=== PATIENT | male | born 1980 | race Caucasian/White ===

== ENCOUNTER 2023-05-21 20:31 | Emergency (ER) | payer SELFPAY ==
[2023-05-21 20:43] VITALS: BP 130/82
[2023-05-21 20:58] LABS: Hematocrit 34.1 % (39.0-52.0); Hemoglobin 11.4 g/dL (13.0-18.0); Mean Corp Hgb Conc. 33.4 g/dL (33.0-37.0); Mean Corpuscular Hgb 29.2 pg (27.0-31.0); Mean Corpuscular Volume 87.4 fL (80.0-94.0); Mean Platelet Volume 9.6 fL (7.4-10.4); Platelet Count 277 10^3/uL (130-400); Red Cell Dist. Width 14.3 % (11.5-14.5)
[2023-05-21 21:18] LABS: ALT (SGPT) 18 U/L (0-50); AST (SGOT) 25 U/L (17-59); Albumin 4.8 g/dl (3.5-5.0); Alkaline Phosphatase 65 U/L (38-126); Blood Urea Nitrogen 17 mg/dl (9-20); Calcium 9.6 mg/dl (8.4-10.2); Carbon Dioxide 28 mmol/L (22-30); Chloride 104 mmol/L (98-107); Glucose 100 mg/dl (70-99); Lithium 0.6 mmol/L (0.6-1.2); Potassium 4.3 mmol/L (3.5-5.1); Sodium 135 mmol/L (135-145); Total Bilirubin 0.4 mg/dl (0.2-1.3); Total Protein 7.4 g/dl (6.3-8.2); eGFR > 60.00
--- NOTE | 2023-05-21 23:51 | ED.GENMED ---
History of Present Illness
General
Chief Complaint: Bowel Problem
Source: patient
Exam Limitations: none
Time Seen by Provider: 05/21/23 23:06
Travel History
Have you had any contact with someone who has COVID-19?: No
Do you have any symptoms of coronavirus? Fever > 100 degrees, chills, cough, shortness of breath, sore throat, loss of taste or smell, muscle aches, or headache?: No
History of Present Illness
History of Present Illness:
This is a 43 year old male that comes in with c/o hemorrhoids. State that for about the past month he has had discomfort in the rectal area like a hemorrhoid. States that he also had labs about 1.5 weeks ago and he was told that his Potassium was
high. States that he came in to night because of the rectal discomfort. Denies any fever, chills, chest pain, SOB, abd pain, nausea, vomiting, diarrhea, headache, dizziness, urinary burning.
Past History
Past History
ED Past Medical History: Asthma, Psychiatric (bipolar ) and Other (Pyloris stenosis)
ED Past Surgical History: Tonsilectomy
Social History
Tobacco: Non-smoker
Alcohol: None
Drug: None
Personal:
Living: with family
Review of Systems
Review of Systems
All Other Systems: ROS reviewed and negative except as documented in HPI and ROS
Constitutional: Reports no symptoms; Denies fever or chills
EENT: Reports no symptoms
Respiratory: Denies cough or trouble breathing
Cardiac: Reports no symptoms; Denies chest pain
ABD/GI: Reports other (Rectal exam negative for any obvious hemorrhoid. Possible internal hemorrhoid palpable. ); Denies abdominal pain, nausea, vomiting or diarrhea
: Reports no symptoms; Denies dysuria, frequency or urgency
Musculoskeletal: Reports no symptoms
Skin: Reports no symptoms
Neurological: Reports no symptoms; Denies dizzy or headache
Psychiatric: Reports no symptoms
Phy Exam
General Physical Exam
General Presentation: well appearing and no apparent distress
General age: appears stated age
General Skin: warm and dry
General Habitus: normal
General Mental: alert
General Hydration: appears well hydrated
ENT Exam
ENT Exam: TM's normal, pharynx normal and neck supple
Eye Exam
Eye Exam: EOMI
Cardiovascular Exam
Cardiovascular Exam: regular rate/rhythm, no edema, no murmur and normal peripheral pulses
Pulmonary Exam
Pulmonary Exam: lungs clear, no respiratory distress, no rales, chest non tender, no crackles, no rhonchi, no wheezing and no cough
Gastrointestinal Exam
Gastrointestinal Exam: normal bowel sounds, non tender, soft, no organomegaly, no pulsatile mass, non distended and other (Negative for any external hemorrhoid. Possible internal hemorrhoid palpable. Negative for any abscess noted)
Musculoskeletal Exam
Musculoskeletal Exam: full ROM and no edema
Skin Exam
Skin Exam: normal color, warm/dry, no rash and no petechia
Psychiatric Exam
Psychiatric Exam: normal mood/affect
Course
Orders/Labs/Results
Orders:
Orders
05/21/23 20:52
CMP [Comprehensive Metabolic Panel] Urgent
Complete Blood Count/No Diff Urgent
Deans Urgent
05/21/23 23:49
Anusol Hc Suppository [Anusol Hc] 25 mg RECTAL NOW STA
Abnormal Lab Results
05/21/23
20:52
RBC 3.90 L 10^6/uL
(4.70-6.10)
Hgb 11.4 L g/dL
(13.0-18.0)
Hct 34.1 L %
(39.0-52.0)
Glucose 100 H mg/dl
(70-99)
05/21/23 20:52
05/21/23 20:52
HH slightly low. Glucose nonfasting. Deans level low normal at 0.6
Vital Signs
Initial and Last Documented VS:
Initial Vital Signs
Pulse Resp BP Pulse Ox
64 20 130/82 100
05/21/23 20:43 05/21/23 20:43 05/21/23 20:43 05/21/23 20:43
Last Documented Vital Signs
Pulse Resp BP Pulse Ox
64 20 130/82 100
05/21/23 20:43 05/21/23 20:43 05/21/23 20:43 05/21/23 20:43
MDM/Problems Addressed
Differential Diagnosis Includes:
Internal hemorrhoids, Fissure,
MDM/Problems Addressed:
This is a 43 year old male that comes in with c/o rectal discomfort due to hemorrhoids. States that he also had blood work about 1.5 weeks ago and he was told that his Potassium was elevated.
Explained to patient that his Potassium level is normal. There is no obvious External hemorrhoid but there may be internal hemorrhoids. Will have patient use Anusol HC suppository and follow up with the Colorectal specialist. Patient to return with
any concerns.
Chronic conditions affecting care:
NA
Acute Exacerbation and/or Progression of Chronic Illness:
NA
*Pulse Oximetry
Patient hypoxic: no
*EKG
Interpreted by ED Provider?: NA
Rate: EKG- N/A
*Automatic Thread Winder Interpretation
Rate: Automatic Thread Winder- N/A
*Critical Care Note
Total Time (30-74mins, 75-104mins- exclusive of procedures): Not Applicable
ED Attending Note
-
Portions of this chart may have been created with voice recognition software.� Occasional wrong word or��sound alike� substitutions may have occurred due to the inherent limitations of voice recognition software.
Discharge Plan
Departure
Patient Disposition: Home (Routine Discharge)
Date of Disposition: 05/21/23
Time of Disposition: 23:57
Patient with high blood pressure during this ER visit?: Yes
Condition: Good
Covid-19: Not Applicable
Discharge Problem:
Hemorrhoids
Instructions: Hemorrhoids (DC), BLOOD PRESSURE
Prescriptions:
New
hydrocortisone acetate [Anucort-HC] 25 mg suppository
25 mg OH BID Qty: 12 0RF
No Action
lithium carbonate 300 MG tablet extended release
600 mg PO HS
lamotrigine [Lamictal XR] 100 MG tablet extended release 24hr
100 mg PO HS
cephalexin 500 MG capsule
500 mg PO QID Qty: 28 0RF
Referrals:
Adin Alejandro MD [Active] - Call in 1-3 days for appt
NONE,* [Family Provider] -
Activity Restrictions/Additional Instructions:
As discussed, your blood work shows that your Potassium is normal. Your Deans level is low normal at 0.6. There is no obvious hemorrhoids but there may be internal hemorrhoids. You have had a prescription sent to your Pharmacy for Anusol HC
suppository. Please follow up with the Colorectal specialist for further evaluation. IF YOU HAVE INCREASED OR CHANGING PAIN, OR YOU HAVE ANY OTHER CONCERNS PLEASE RETURN TO THE EMERGENCY ROOM.
Interventions
Interventions:
*Risk Screen - Suicide Last Done: 05/21/23 20:43
*General Assessment Last Done: 05/21/23 22:57
*Neglect/Abuse Screening Last Done: 05/21/23 20:43
ED- Fall Risk Assessment Last Done: 05/21/23 22:57
*ED COVID-19 Vaccine History Last Done: 05/21/23 22:57
WR-Rcxurt-Fpojeywbam Assessment Last Done: 05/21/23 22:57
[2023-05-22 00:22] VITALS: BP 113/59
[2023-05-22] MEDS: ANUSOL HC 25 MG RECTAL (00:53)
== END 2023-05-22 00:55 | disposition home or self-care (01) ==
LOC: EMR 20:31
PROVIDERS: Emergency Medicine; EMERGENCY PHYSICIAN Student in an Organized Health Care Education/Training Program
DX: K64.8 Other hemorrhoids (principal); R03.0 Elevated blood-pressure reading, without diagnosis of hypertension
CPT/HCPCS: 99283; 80053; 80178; 85027